=== PATIENT | female | born 1985 | race American Indian/Alaskan Native ===

== ENCOUNTER 2019-04-23 05:59 | Emergency (ER) | payer SELFPAY ==
[2019-04-23 06:12] VITALS: BP 105/58
[2019-04-23 07:09] LABS: Bilirubin,Urine NEG (Negative); Blood,Urine NEG (Negative); Color,Urine Yellow (Yellow); Mucus,Urine FEW /HPF; Protein,Urine <15 mg/dL mg/dL (Negative); Urobilinogen,Urine < 2.0 mg/dL (<2.0)
--- NOTE | 2019-04-23 07:21 | Emergency Department Report ---
HPI - General Chief Complaint: Abdominal Pain Time Seen by Provider: 04/23/19 07:20 - HPI HPI: Pt is a 34-year-old female who comes to the ER today complaining of abdominal pain since 4:00 yesterday. She states that it comes and goes. She also reports that she had diarrhea times one. And she vomited twice. She states that she thinks she ate some bad food last night. Nobody else in the home is ill. She does work in a hospital environment. Patient denies any major medical problems and takes no medications daily. She has had a previous appendectomy and tubal ligation. Patient is ambulatory and nontoxic on admission to the emergency room. Patient has taken nothing to make her symptoms go away. She cannot tell me any exaggerating or exacerbates events. ED Past Medical Hx - Past Medical History Previous Medical History?: No - Surgical History Past Surgical History?: Yes Hx Appendectomy: Yes Additional Surgical History: Tubal Ligation - Social History Smoking Status: Never Smoker - Medications Home Medications: Home Medications Medication Instructions Recorded Confirmed Last Taken Type Ondansetron [Zofran Odt] 4 mg PO Q8HR PRN #10 tab.rapdis 04/23/19 Unknown Rx ED Review of Systems ROS: Stated complaint: ABD PAIN/HEADACHE Other details as noted in HPI Comment: All other systems reviewed and negative Physical Exam - Physical Exam Vital Signs: Vital Signs 04/23/19 06:07 Temperature 98.3 F Pulse Rate 83 Respiratory 20 Rate Blood Pressure 105/58 O2 Sat by Pulse 98 Oximetry Physical Exam: WDWN patient in NAD VS per RN flow sheet Alert and oriented to person, place and time. S1-S2. No S3 or S4. No systolic or diastolic murmur. No JVD. No pitting edema. Lungs clear to auscultation bilaterally anteriorly and posteriorly. Abdomen soft nontender bowel sounds x 4. Moves all extremities well. Mood and affect appropriate. ED Course Vital Signs 04/23/19 06:07 Temperature 98.3 F Pulse Rate 83 Respiratory 20 Rate Blood Pressure 105/58 O2 Sat by Pulse 98 Oximetry ED Medical Decision Making - Lab Data Result diagrams: 04/23/19 07:07 04/23/19 07:07 - Medical Decision Making Labs 04/23/19 04/23/19 04/23/19 06:32 07:07 07:07 WBC 7.8 RBC 4.61 Hgb 13.0 Hct 39.0 MCV 85 MCH 28 MCHC 33 RDW 13.7 Plt Count 432 Lymph % (Auto) 40.3 H [place] % (Auto) 10.2 H Eos % (Auto) 2.6 Baso % (Auto) 0.5 Lymph # 3.2 [place] # 0.8 Eos # 0.2 Baso # 0.0 Seg Neutrophils % 46.4 Seg Neutrophils # 3.6 Sodium 142 Potassium 4.2 Chloride 102.3 Carbon Dioxide 28 Anion Gap 16 BUN 11 Creatinine 0.8 Estimated GFR > 60 BUN/Creatinine Ratio 14 Glucose 116 H Calcium 8.9 Total Bilirubin 0.20 AST 14 ALT 16 Alkaline Phosphatase 69 Total Protein 7.2 Albumin 3.7 L Albumin/Globulin Ratio 1.1 Lipase 42 HCG, Qual Urine Color Yellow Urine Turbidity Slightly-cloudy Urine pH 5.0 Ur Specific [place] 1.024 Urine Protein <15 mg/dl Urine Glucose (UA) Neg Urine Ketones Neg Urine Blood Neg Urine Nitrite Neg Urine Bilirubin Neg Urine Urobilinogen < 2.0 Ur Leukocyte Esterase Neg Urine WBC (Auto) 1.0 Urine RBC (Auto) 2.0 U Epithel Cells (Auto) 5.0 Urine Mucus Few 04/23/19 07:07 WBC RBC Hgb Hct MCV MCH MCHC RDW Plt Count Lymph % (Auto) [place] % (Auto) Eos % (Auto) Baso % (Auto) Lymph # [place] # Eos # Baso # Seg Neutrophils % Seg Neutrophils # Sodium Potassium Chloride Carbon Dioxide Anion Gap BUN Creatinine Estimated GFR BUN/Creatinine Ratio Glucose Calcium Total Bilirubin AST ALT Alkaline Phosphatase Total Protein Albumin Albumin/Globulin Ratio Lipase HCG, Qual Negative Urine Color Urine Turbidity Urine pH Ur Specific [place] Urine Protein Urine Glucose (UA) Urine Ketones Urine Blood Urine Nitrite Urine Bilirubin Urine Urobilinogen Ur Leukocyte Esterase Urine WBC (Auto) Urine RBC (Auto) U Epithel Cells (Auto) Urine Mucus Vital Signs 04/23/19 06:07 Temperature 98.3 F Pulse Rate 83 Respiratory 20 Rate Blood Pressure 105/58 O2 Sat by Pulse 98 Oximetry Labs noted. Vital signs are normal. Patient afebrile. Exam is unremarkable. Patient has had a partial hysterectomy. Her U is negative. Patient's also had an appendectomy in the past. Lipase noted to be normal. On discharge patient is taking by mouth without difficulty. She is ambulatory with normal vital signs. Being discharged home with follow-up plan of care. - Differential Diagnosis ro preg/ ro choley/ ro gastrenteritis Critical care attestation.: If time is entered above; I have spent that time in minutes in the direct care of this critically ill patient, excluding procedure time. ED Disposition Clinical Impression: Gastroenteritis Disposition: DC-01 TO HOME OR SELFCARE Is pt being admited?: No Does the pt Need Aspirin: No Condition: Stable Instructions: Gastroenteritis (ED) Additional Instructions: DIET TOLERATED MEDS ORDERED TODAY IN ER FOLLOW INSTRUCTIONS ON THE BOTTLE FOLLOW UP PCP WITHIN 48 HOURS TO ENSURE YOU ARE GETTING BETTER ACTIVITY TOLERATED MOTRIN OR TYLENOL FOR PAIN OR FEVER RETURN TO THE ER FOR WORSENING SYMPTOMS NOT RELIEVED BY YOUR MEDICATIONS. Prescriptions: Ondansetron [Zofran Odt] 4 mg PO Q8HR PRN #10 tab.rapdis PRN Reason: Vomiting Referrals: MORGAN JOSEPH MD [Primary Care Provider] - 3-5 Days Forms: Work/School Release Form(ED) Time of Disposition: 09:11
[2019-04-23 07:28] LABS: Basophils % (Auto) 0.5 % (0.0-1.8); Eosinophils # (Auto) 0.2 K/mm3 (0.0-0.4); Eosinophils % (Auto) 2.6 % (0.0-4.3); Lymphocytes # (Auto) 3.2 K/mm3 (1.2-5.4); Lymphocytes % (Auto) 40.3 % (13.4-35.0); Mean Corpuscular HGB Conc 33 % (30-34); Mean Corpuscular Volume 85 fl (79-97); Monocytes # (Auto) 0.8 K/mm3 (0.0-0.8); Monocytes % (Auto) 10.2 % (0.0-7.3); Platelet Count 432 K/mm3 (140-440); Red Blood Count 4.61 M/mm3 (3.65-5.03); Red Cell Distribution Width 13.7 % (13.2-15.2)
[2019-04-23] MEDS ORDERED: ZOFRAN ODT PO ONE (07:29)
[2019-04-23] MEDS ORDERED: TYLENOL PO ONE (07:29)
[2019-04-23 07:49] LABS: Alanine Aminotransferase 16 units/L (7-56); Albumin 3.7 g/dL (3.9-5); BUN/Creatinine Ratio 14; Blood Urea Nitrogen 11 mg/dL (7-17); Calcium 8.9 mg/dL (8.4-10.2); Hemolysis Index 4
--- NOTE | 2019-04-23 09:07 | XRay Report ---
ABDOMINAL SERIES: History: Abdominal pain. Erect chest film shows no acute or significant changes involving the heart or lung hernandez. There is no evidence of free air beneath the diaphragms. The gas pattern within the abdomen is unremarkable. There is no evidence of bowel dilatation, significant air-fluid levels, or masses. Organ shadows are unremarkable. IMPRESSION: Abdominal series within normal limits.
== END 2019-04-23 09:20 | disposition home or self-care (01) ==
LOC: ED 05:59
DX: K52.9 Noninfective gastroenteritis and colitis, unspecified (principal); Z90.89 Acquired absence of other organs; Z98.51 Tubal ligation status
CPT/HCPCS: 36415; 74022; 80053; 81001; 83690; 84703; 85025; Q0162

== ENCOUNTER 2019-04-25 14:54 | Emergency (ER) | payer SELFPAY ==
--- NOTE | 2019-04-25 15:53 | Emergency Department Report ---
Blank Doc - Documentation Documentation: This is a 34-year-old female that presents with n/v and diarrhea. Was here and has resolved but started again. stated has sore throat due to vomiting. This initial assessment/diagnostic orders/clinical plan/treatment(s) is/are subject to change based on patient's health status, clinical progression and re- assessment by fellow clinical providers in the ED. Further treatment and workup at subsequent clinical providers discretion. Patient/guardians urged not to elope from the ED as their condition may be serious if not clinically assessed and managed. Initial orders include: 1- Patient sent to [facility] for further evaluation and treatment 2- labs
[2019-04-25 16:37] LABS: Basophils # (Auto) 0.1 K/mm3 (0.0-0.1); Basophils % (Auto) 0.7 % (0.0-1.8); Eosinophils # (Auto) 0.2 K/mm3 (0.0-0.4); Eosinophils % (Auto) 2.1 % (0.0-4.3); Hematocrit 40.1 % (30.3-42.9); Hemoglobin 13.3 gm/dl (10.1-14.3); Lymphocytes # (Auto) 3.4 K/mm3 (1.2-5.4); Lymphocytes % (Auto) 44.3 % (13.4-35.0); Mean Corpuscular HGB Conc 33 % (30-34); Mean Corpuscular Volume 85 fl (79-97); Monocytes # (Auto) 0.6 K/mm3 (0.0-0.8); Monocytes % (Auto) 7.9 % (0.0-7.3); Platelet Count 389 K/mm3 (140-440); Red Blood Count 4.72 M/mm3 (3.65-5.03); Red Cell Distribution Width 13.9 % (13.2-15.2)
[2019-04-25 17:02] LABS: Alanine Aminotransferase 17 units/L (7-56); Albumin 3.7 g/dL (3.9-5); BUN/Creatinine Ratio 16; Blood Urea Nitrogen 11 mg/dL (7-17); Calcium 8.8 mg/dL (8.4-10.2); Hemolysis Index 36
[2019-04-25] MEDS ORDERED: PEPCID PO ONE (19:31)
[2019-04-25] MEDS ORDERED: PHENERGAN PO ONE (19:31)
--- NOTE | 2019-04-25 21:26 | Emergency Department Report ---
ED N/V/D HPI - General Chief complaint: Nausea/Vomiting/Diarrhea Stated complaint: N/V, HEADACHE Time Seen by Provider: 04/25/19 15:51 Source: patient Mode of arrival: Ambulatory Limitations: No Limitations - History of Present Illness Initial comments: Patient is a A0 34-year-old -[place] female with no past medical history presents to the ED with c/o acute onset persistent intermittent nausea and vomiting with diarrhea and diffuse abdominal pain for the last 3 days. Patient admits to eating at a restaurant 4 days ago. Patient denies dizziness, fever, chills, dysuria, urinary frequency and urgency, headache, dizziness, vaginal bleeding, vaginal discharge, chest pain or shortness of breath and sore throat. MD complaint: nausea, diarrhea, abdominal pain -: Sudden, days(s) (3) Description of Vomiting: food contents, watery Description of Diarrhea: water Associated Abdominal Pain: Yes (Mildly diffuse) Location: diffuse Radiation: none Severity: moderate Pain Scale: 4 Quality: aching, dull Consistency: intermittent Improves with: none Worsens with: none Context: possible food poisoning Associated Symptoms: denies other symptoms, nausea/vomiting. denies: myalgias, cough, diaphoresis, fever/chills, headaches, loss of appetite, malaise, rash, dysuria, shortness of breath, syncope, weakness - Related Data Previous Rx's Medication Instructions Recorded Last Taken Type Ondansetron [Zofran Odt] 4 mg PO Q8HR PRN #10 tab.rapdis 04/23/19 Unknown Rx Diphenoxylate/Atropine [Lomotil] 1 - 2 tab PO Q4H PRN #15 tablet 04/25/19 Unknown Rx Promethazine [Phenergan] 25 mg PO Q6HR PRN #24 tab 04/25/19 Unknown Rx Ranitidine HCl [Zantac] 150 mg PO Q12H #24 tablet 04/25/19 Unknown Rx Allergies Allergy/AdvReac Type Severity Reaction Status Date / Time No Known Allergies Allergy Unverified 04/23/19 06:02 ED Review of Systems ROS: Stated complaint: N/V, HEADACHE Other details as noted in HPI Constitutional: denies: chills, fever Eyes: denies: eye pain, eye discharge, vision change ENT: denies: ear pain, throat pain Respiratory: denies: cough, shortness of breath, wheezing Cardiovascular: denies: chest pain, palpitations Endocrine: no symptoms reported Gastrointestinal: abdominal pain, nausea, vomiting, diarrhea Genitourinary: denies: urgency, dysuria, discharge Musculoskeletal: denies: back pain, joint swelling, arthralgia Skin: denies: rash, lesions Neurological: denies: headache, weakness, paresthesias Psychiatric: denies: anxiety, depression Hematological/Lymphatic: denies: easy bleeding, easy bruising ED Past Medical Hx - Past Medical History Previous Medical History?: No - Surgical History Past Surgical History?: Yes Hx Appendectomy: Yes Additional Surgical History: Tubal Ligation - Social History Smoking Status: Never Smoker Substance Use Type: None - Medications Home Medications: Home Medications Medication Instructions Recorded Confirmed Last Taken Type Ondansetron [Zofran Odt] 4 mg PO Q8HR PRN #10 tab.rapdis 04/23/19 Unknown Rx Diphenoxylate/Atropine [Lomotil] 1 - 2 tab PO Q4H PRN #15 tablet 04/25/19 Unknown Rx Promethazine [Phenergan] 25 mg PO Q6HR PRN #24 tab 04/25/19 Unknown Rx Ranitidine HCl [Zantac] 150 mg PO Q12H #24 tablet 04/25/19 Unknown Rx ED Physical Exam - General Limitations: No Limitations General appearance: alert, in no apparent distress - Head Head exam: Present: atraumatic, normocephalic, normal inspection - Eye Eye exam: Present: normal appearance, PERRL, EOMI. Absent: scleral icterus, conjunctival injection, periorbital swelling, periorbital tenderness Pupils: Present: normal accommodation - ENT ENT exam: Present: normal exam, normal orophraynx, mucous membranes moist, TM's normal bilaterally, normal external ear exam - Neck Neck exam: Present: normal inspection, full ROM. Absent: tenderness, meningismus, lymphadenopathy, thyromegaly - Respiratory Respiratory exam: Present: normal lung sounds bilaterally. Absent: respiratory distress, wheezes, rales, rhonchi, chest wall tenderness, accessory muscle use - Cardiovascular Cardiovascular Exam: Present: regular rate, normal rhythm, normal heart sounds. Absent: systolic murmur, diastolic murmur, rubs, gallop - GI/Abdominal GI/Abdominal exam: Present: soft, normal bowel sounds. Absent: distended, tenderness, guarding, hyperactive bowel sounds, hypoactive bowel sounds, organomegaly - Rectal Rectal exam: Present: deferred - Extremities Exam Extremities exam: Present: normal inspection, full ROM, normal capillary refill - Back Exam Back exam: Present: normal inspection, full ROM. Absent: tenderness, CVA tenderness (L), muscle spasm, paraspinal tenderness, vertebral tenderness - Neurological Exam Neurological exam: Present: alert, oriented X3, CN II-XII intact, normal gait, reflexes normal - Psychiatric Psychiatric exam: Present: normal affect, normal mood - Skin Skin exam: Present: warm, dry, intact, normal color. Absent: rash ED Course Vital Signs 04/25/19 04/25/19 15:51 21:00 Temperature 98.4 F 97.6 F Pulse Rate 68 79 Respiratory 20 16 Rate Blood Pressure 130/67 Blood Pressure 121/58 [Left] O2 Sat by Pulse 99 100 Oximetry - Reevaluation(s) Reevaluation #1: 04/25/19 21:27 Patient is alert and oriented 3 and is not in distress with normal vital signs. Labs tests results were reviewed and are unremarkable. Patient was treated for nausea and vomiting and pain in the ED, and on reevaluation, patient's symptoms have resolved patient is not having any nausea and vomiting at this point. The patient tolerated oral fluids in the ED with normal nausea and vomiting. Patient discharged home on medications and advised to follow up with her primary care physician at [facility] in 3-5 days. Patient was however was advised to maintain a clear the good for 12-24 hours. Patient advised to return to the ED if symptoms get worse. ED Medical Decision Making - Lab Data Result diagrams: 04/25/19 16:00 04/25/19 16:00 - Medical Decision Making Patient is alert and oriented 3 and is not in distress with normal vital signs. Labs tests results were reviewed and are unremarkable. Patient was treated for nausea and vomiting and pain in the ED, and on reevaluation, patient's symptoms have resolved patient is not having any nausea and vomiting at this point. The patient tolerated oral fluids in the ED with normal nausea and vomiting. Patient discharged home on medications and advised to follow up with her primary care physician at [facility] in 3-5 days. Patient was however was advised to maintain a clear the good for 12-24 hours. Patient advised to return to the ED if symptoms get worse. - Differential Diagnosis Nausea, vomiting and diarrhea; Viral gastroenteritis Critical care attestation.: If time is entered above; I have spent that time in minutes in the direct care of this critically ill patient, excluding procedure time. ED Disposition Clinical Impression: Viral gastroenteritis, Nausea, vomiting and diarrhea Disposition: TO HOME OR SELFCARE Is pt being admited?: No Does the pt Need Aspirin: No Condition: Stable Instructions: Acute Nausea and Vomiting (ED), Gastroenteritis (ED), Food Poisoning (ED) Additional Instructions: Maintain a clear liquid diet for 12-24 hours, take medications and drink plenty of fluids. Return to the ED immediately if symptoms get worse. Otherwise follow-up with your primary care physician in 3-5 days for reevaluation. Prescriptions: Diphenoxylate/Atropine [Lomotil] 1 - 2 tab PO Q4H PRN #15 tablet PRN Reason: Diarrhea Promethazine [Phenergan] 25 mg PO Q6HR PRN #24 tab PRN Reason: Nausea Ranitidine HCl [Zantac] 150 mg PO Q12H #24 tablet Referrals: MORGAN JOSEPH MD [Primary Care Provider] - 3-5 Days Forms: Work/School Release Form(ED) Time of Disposition: 21:32 Print Language: MONGOLIAN
[2019-04-25 21:53] VITALS: BP 120/56
== END 2019-04-25 21:45 | disposition home or self-care (01) ==
LOC: ED 14:54
DX: A08.4 Viral intestinal infection, unspecified (principal); R11.2 Nausea with vomiting, unspecified; Z90.49 Acquired absence of other specified parts of digestive tract; Z98.51 Tubal ligation status
CPT/HCPCS: 36415; 80053; 83690; 84703; 85025; 99283; Q0169